=== PATIENT | male | born 1990 | race Caucasian/White ===

== ENCOUNTER 2020-08-24 15:45 | Emergency (ER) | payer OTHER ==
[~2020-08-24] VITALS: Ht 180.3 cm; Wt 81.6 kg
== END 2020-08-24 20:11 | disposition home or self-care (01) ==
LOC: ER 15:45
DX: H66.91 Otitis media, unspecified, right ear (principal)

== ENCOUNTER 2020-11-22 01:18 | Inpatient (IN) | payer OTHER ==
[~2020-11-22] VITALS: Ht 177.8 cm
[2020-11-28] MEDS ORDERED: LEVOFLOXACIN750 MG PO (15:25)
[2020-11-28] MEDS ORDERED: CLEOCIN HCL300 MG PO (15:25)
[2020-11-28] MEDS ORDERED: INTESTINEX680 M1 PO (15:25)
== END 2020-11-28 16:02 | disposition home or self-care (01) | DRG 918 ==
LOC: ER 01:18 → MEDI 13:56
PROVIDERS: ADMIT Internal Medicine; ATTEND Internal Medicine
PROC: CB2YYZZ Tomographic (Tomo) Nuclear Medicine Imaging of Respiratory System using Other Radionuclide (ICD-10-PCS; principal; 2020-11-23)
PROC: 3E0F7SF Introduction of Other Gas into Respiratory Tract, Via Natural or Artificial Opening (ICD-10-PCS; 2020-11-24)
PROC: 4A033R1 Measurement of Arterial Saturation, Peripheral, Percutaneous Approach (ICD-10-PCS; 2020-11-26)
DX: T59.891A Toxic effect of other specified gases, fumes and vapors, accidental (unintentional), initial encounter (principal); J68.0 Bronchitis and pneumonitis due to chemicals, gases, fumes and vapors; J70.4 Drug-induced interstitial lung disorders, unspecified; Z72.89 Other problems related to lifestyle; F12.90 Cannabis use, unspecified, uncomplicated; R09.02 Hypoxemia; Z20.822 Contact with and (suspected) exposure to COVID-19